=== PATIENT | female | born 1955 | race Caucasian/White ===

== ENCOUNTER 2016-10-17 12:10 | Inpatient (IN) | payer OTHER ==
[~2016-10-17] VITALS: Ht 165.1 cm; Wt 64.9 kg
[~2016-10-17 12:10] MED LIST: HYDR-552 PO; LEVO750T21 PO
[2016-10-17] MEDS ORDERED: NITROGLYCERIN PACKET 1 GM PACKET TD ONE (12:30)
[2016-10-17] MEDS ORDERED: NITROGLYCERIN PACKET 1 GM PACKET ONE (12:35)
--- NOTE | 2016-10-17 12:40 | NUR ---
PRESENTS SELF TO ED DT DIFFUSED CHEST PAIN RADIATING TO BACK SINCE 1100 TODAY. PT DENIES NAUSEA AND VOMITTING,. NO HEADACHE REPORTED. SKIN IS WARM TO TOUCH AND NON DIAPHORETIC. PT IS AFEBRILE. VSS
[2016-10-17 12:44] LABS: BASOPHILS % (AUTO) 0.4 % (0.0-2.0); EOSINOPHILS # (AUTO) 0.4 /CMM (0.0-0.7); EOSINOPHILS % (AUTO) 4.7 % (0.0-6.0); HEMATOCRIT 42 % (33-45); HEMOGLOBIN 13.9 g/dL (11.5-14.8); LYMPHOCYTES # (AUTO) 3.2 /CMM (0.8-4.8); LYMPHOCYTES % (AUTO) 38.6 % (20.0-44.0); MEAN CORPUSCULAR HEMOGLOBIN 31 PG (26.0-33.0); MEAN CORPUSCULAR HGB CONC 33 g/dl (31.0-36.0); MEAN CORPUSCULAR VOLUME 93 fL (82-100); MONOCYTES # (AUTO) 0.2 /CMM (0.1-1.30); MONOCYTES % (AUTO) 2.5 % (2.0-12.0); NEUTROPHILS # (AUTO) 4.5 /CMM (1.8-8.9); NEUTROPHILS % (AUTO) 53.8 % (43.0-81.0); PLATELET COUNT (AUTO) 288 /CMM (150-450); RDW COEFFICIENT OF VARIATION 13.3 (11.5-15.0); RED BLOOD CELL COUNT(AUTO) 4.47 MIL/uL (4.0-5.2); WHITE BLOOD COUNT (AUTO) 8.3 K/uL (4.3-11.0)
--- NOTE | 2016-10-17 12:44 | NUR ---
ULTRASONIC HAND SOLDERER AT BEDSIDE
--- NOTE | 2016-10-17 12:44 | NUR ---
IV ACCESSED TO LAC 20. BLOOD SAMPLE SENT TO LAB
[2016-10-17 12:58] LABS: INR 0.94 (0.87-1.13); PROTHROMBIN TIME 9.8 SECS (9.5-12.7)
[2016-10-17] MEDS ORDERED: IV NS 0.9% 1,000 ML BAG IV ONE (13:00)
[2016-10-17 13:02] LABS: CALCIUM, SERUM 9.2 mg/dL (8.5-10.1); CARBON DIOXIDE 29 mmol/L (21-32); CHLORIDE 103 mmol/L (98-107); CREATININE 1.1 mg/dL (0.6-1.3); GLUCOSE 146 mg/dL (74-106); POTASSIUM 4.1 mmol/L (3.5-5.1); SODIUM SERUM 140 mmol/L (136-145); UREA NITROGEN, BLOOD 15 mg/dL (7-18)
[2016-10-17 13:11] LABS: TROPONIN I < 0.017 ng/mL (0.00-0.056)
--- NOTE | 2016-10-17 13:18 | NUR ---
CALLED NURSING SUP. FOR TELE BED
--- NOTE | 2016-10-17 13:21 | NUR ---
SAM PAGED, DR.SAM Hall MUSIC DIRECTOR
[2016-10-17] MEDS ORDERED: METO25TA20 PO (13:29)
[2016-10-17] MEDS ORDERED: SIMV10TA6 PO (13:29)
[2016-10-17] MEDS ORDERED: ASPI81TA2 PO (13:29)
[2016-10-17] MEDS ORDERED: NITR0.4T6 SL (13:29)
[2016-10-17] MEDS ORDERED: CHOL100044 PO (13:30)
--- NOTE | 2016-10-17 13:45 | NUR ---
TRIED GIVING REPORT BUT NURSE IN NOT AVAILABLE
--- NOTE | 2016-10-17 13:58 | NUR ---
TRIED GIVING REPORT BUT NURSE IN NOT AVAILABLE
[2016-10-17] MEDS ORDERED: ACETAMINOPHEN 325 MG TABLET PO PRN (14:00)
[2016-10-17] MEDS ORDERED: NITROGLYCERIN 0.4 MG/TAB BOTTLE SL PRN ×2 (14:00)
[2016-10-17] MEDS ORDERED: HYDROCODONE/APAP 5/325MG 1 EACH TABLET PO PRN (14:00)
[2016-10-17] MEDS: METOPROLOL TARTRATE 25 MG TABLET PO SCH ×2 (14:00→21:21)
[2016-10-17] MEDS ORDERED: ONDANSETRON HCL/PF 4 MG/2 ML VIAL IVP PRN (14:00)
[2016-10-17] MEDS ORDERED: MAGNESIUM HYDROXIDE 30 ML UDC PO PRN (14:00)
[2016-10-17] MEDS ORDERED: Z GUARD REMEDY 2 OZ OINT TP PRN (14:00)
[2016-10-17] MEDS ORDERED: MORPHINE SULFATE INJ 2 MG/ML DISP.SYRIN IV PRN (14:00)
[2016-10-17] MEDS ORDERED: ZOLPIDEM TARTRATE 5 MG TABLET PO PRN (14:00)
[2016-10-17] MEDS ORDERED: MAG HYDROX/AL HYDROX/SIMETH 30 ML UDC PO PRN (14:00)
--- NOTE | 2016-10-17 14:04 | NUR ---
TRIED GIVING REPORT BUT NURSE NOT AVAILABLE
--- NOTE | 2016-10-17 14:15 | NUR ---
PATIENT TRASNPORTED TO TELE 1. BINAE REPORT GIVEN
[2016-10-17 15:02] VITALS: BP 135/62
--- NOTE | 2016-10-17 15:47 | NUR ---
APPLIANCE PAINTER AND REFINISHER INITIAL NOTE: RECEIVED PATIENT FROM ER FOR CHEST PAIN UNDER SR BETH SCHWARTZ. PATIENT IS A&OX4, AMBULATORY, CONTINENT. ON TELE MONITOR WITH SR, NO SOB, DENIES CHEST DISCOMFORT, DENIES PAIN. BED KEPT LOW, LOCKED ALARM ON FOR SAFETY WITH CALL LIGHT WITHIN REACH. BELONGINGS SIGNED. HOSPITAL ORIENTATION DONE. VITAL SIGNS DONE. GRANDDAUGHTER AT BEDSIDE. STRESS TEST CONSENT DONE. ALL NEEDS MET AND ANTICIPATED. WILL CONT TO MONITOR.
--- NOTE | 2016-10-17 19:24 | NUR ---
PIPE JEEPER CLOSING NOTE: PATIENT A&OX4, AMBULATORY, CONTINENT. ON ROOM AIR W/NO SOB, DENIES CHEST DISCOMFORT, DENIES PAIN. LAC #20 INTACT AND PATENT. BED KEPT LOW, LOCKED, ALARM ON FOR SAFETY WITH CALL LIGHT WITHIN REACH. ALL NEEDS MET AND ANTICIPATED. WILL ENDORSE TO PM NURSE FOR MILADIS.
--- NOTE | 2016-10-17 19:46 | NUR ---
FOREIGN EXCHANGE DEALER INITIAL NOTE: RECEIVED PATIENT FROM AM SHIFT , PATIENT IS A/OX4, AMBULATORY, CONTINENT. ON TELE MONITOR WITH SR, NO SOB, DENIES CHEST DISCOMFORT, DENIES PAIN. BED KEPT LOW, LOCKED ALARM ON FOR SAFETY WITH CALL LIGHT WITHIN REACH LABS DRAWN FOR TROPONIN LEVEL, PT NPO AFTER MIDNIGHT, D/T STRESS TEST SCHEDULED FOR 12PM PT AWARE .
[2016-10-17 20:00] VITALS: BP 141/61
[2016-10-17] MEDS ORDERED: SIMVASTATIN 20 MG TABLET PO SCH (22:00)
[2016-10-17] MEDS ORDERED: CHOLECALCIFEROL 1,000 UNIT TABLET (VIT D3) PO SCH (22:00)
[2016-10-18] VITALS: BP 140/50
[2016-10-18 04:00] VITALS: BP 124/51
[2016-10-18 04:43] VITALS: BP 124/51
--- NOTE | 2016-10-18 06:30 | NUR ---
ORTHOTICS ASSISTANT CLOSING NOTE: ENDORSED PATIENT TO AM SHIFT , PATIENT IS A/OX4, AMBULATORY, CONTINENT. ON TELE MONITOR WITH SR, NO SOB, DENIES CHEST DISCOMFORT, DENIES PAIN. BED KEPT LOW, LOCKED ALARM ON FOR SAFETY WITH CALL LIGHT WITHIN REACH LABS DRAWN FOR TROPONIN LEVEL, NEGATIVE, PT NPO AFTER MIDNIGHT, D/T STRESS TEST SCHEDULED FOR 12PM PT AWARE
--- NOTE | 2016-10-18 07:15 | NUR ---
RN INITIAL NOTE PATIENT RECEIVED IN BED. PATIENT IS ALERT AND ORIENTED. ABLE TO MAKE NEEDS KNOWN. SINUS RHYTHM ON TELE MONITOR. RESPIRATIONS ARE EVEN AND UNLABORED. SATING WELL ON ROOM AIR. NO S/S OF RESPIRATORY DISTRESS OR SOB. PT IS ON NPO STATUS PENDING FNS CONSULT AND STRESS TEST. IV SITE FLUSHED, PATENT. SKIN IS WARM AND DRY TO TOUCH. SAFETY PRECAUTIONS IMPLEMENTED. BED IN LOCKED, LOW POSITION WITH TWO SIDE RAILS UP. CALL LIGHT AND BELONGINGS WITHIN REACH. WILL CONTINUE TO MONITOR CLOSELY.
[2016-10-18] MEDS ORDERED: PANTOPRAZOLE 40 MG TABLET.DR PO SCH (07:30)
[2016-10-18 08:00] VITALS: BP_SYST 132; BP_SYST 144; BP_DIAS 55; BP_DIAS 57
--- NOTE | 2016-10-18 08:15 | NUR ---
RN NOTE PATIENT REFUSED AM MEDICATIONS.
[2016-10-18] MEDS: METOPROLOL TARTRATE 25 MG TABLET PO SCH (08:21)
[2016-10-18] MEDS: ASPIRIN 81 MG TAB.CHEW PO SCH ×2 (08:21→10:02)
[2016-10-18 12:00] VITALS: BP 136/46
--- NOTE | 2016-10-18 12:01 | NUR ---
RN NOTE PATIENT REFUSED LAB DRAW
[2016-10-18] MEDS ORDERED: SIMV20TA6 PO (14:22)
--- NOTE | 2016-10-18 15:12 | NUR ---
RN NOTE PATIENT DISCHARGED. PAPERWORK COMPLETE. IV SITE DISCONTINUED. MD NOTIFIED. ID REMOVED. FAMILY COMING TO PICK HER UP.
--- NOTE | 2016-10-18 16:32 | NUR ---
NM:CARDIAC STRESS TEST COMPLETED. TECH;rb
== END 2016-10-18 15:23 | disposition home or self-care (01) | DRG 198 ==
LOC: ER 12:12 → TELE1 14:07
DX: I25.10 Atherosclerotic heart disease of native coronary artery without angina pectoris (principal); I10 Essential (primary) hypertension; Z98.61 Coronary angioplasty status; I25.2 Old myocardial infarction; F17.210 Nicotine dependence, cigarettes, uncomplicated; E78.5 Hyperlipidemia, unspecified; Z79.899 Other long term (current) drug therapy; Z87.442 Personal history of urinary calculi; R73.03 Prediabetes
CPT/HCPCS: 36415; 71010-TC; 80048-TC; 84484-TC; 85025-TC; 85730-TC; 87081-TC; 93307-TC; A4606; A9502; J7030; Z7610

== ENCOUNTER 2017-05-20 10:24 | Emergency (ER) | payer OTHER ==
[~2017-05-20] VITALS: Ht 162.6 cm; Wt 63.5 kg
[~2017-05-20 10:24] MED LIST changes: +ASPI-1169 PO; +CHOL100044 PO; -HYDR-552 PO; -LEVO750T21 PO; +METO25TA20 PO; +NITR0.4T48 SL; +SIMV20TA6 PO
[2017-05-20 10:28] VITALS: BP 145/83
[2017-05-20] MEDS ORDERED: TDAP [DIPH/PERTUSSIS/TET] 0.5 ML VIAL IM ONE ×2 (11:00→11:05)
== END 2017-05-20 11:15 | disposition home or self-care (01) ==
LOC: ER 10:25
DX: S80.12XA Contusion of left lower leg, initial encounter (principal); S80.11XA Contusion of right lower leg, initial encounter; F17.210 Nicotine dependence, cigarettes, uncomplicated; E78.5 Hyperlipidemia, unspecified; I10 Essential (primary) hypertension; Z79.82 Long term (current) use of aspirin; Z87.442 Personal history of urinary calculi; V29.69XA Unspecified motorcycle rider injured in collision with other motor vehicles in traffic accident, initial encounter; Y93.89 Activity, other specified; Y92.410 Unspecified street and highway as the place of occurrence of the external cause; Y99.8 Other external cause status
CPT/HCPCS: 90715; A4606; A6402; Z7610

== ENCOUNTER 2018-12-19 22:38 | Emergency (ER) | payer OTHER ==
[~2018-12-19] VITALS: Ht 160 cm; Wt 64.4 kg
--- NOTE | 2018-12-19 23:01 | NUR ---
CAME IN FOR R SIDED BODY PAIN S/P GLF 9 DAYS AGO, 400MG IBUPROFEN THIS AM, ON ANTIBIOTICS FOR SINUSITUS X2DAYS, TO ER BED 4, HOOKED TO MONITOR, AWAITING MD LLANOS.
--- NOTE | 2018-12-19 23:22 | NUR ---
DR MASON AT BEDSIDE
--- NOTE | 2018-12-19 23:45 | NUR ---
MEDICAL BILLER/CODER AT BEDSIDE
[2018-12-20 01:19] VITALS: BP 144/73
--- NOTE | 2018-12-20 01:22 | NUR ---
Patient discharged to home in stable condition. Written and verbal after care instructions given. Patient AND DAUGHTER verbalizes understanding of instruction. DR. MASON IN TO SEE PATIENT TO REINFORCE DC INSTRUCTION.
== END 2018-12-20 01:35 | disposition home or self-care (01) ==
LOC: ER 22:47
DX: M79.18 Myalgia, other site (principal); M54.6 Pain in thoracic spine; M25.511 Pain in right shoulder; I10 Essential (primary) hypertension; E11.9 Type 2 diabetes mellitus without complications; E78.5 Hyperlipidemia, unspecified; F17.200 Nicotine dependence, unspecified, uncomplicated; Z87.442 Personal history of urinary calculi; Z79.82 Long term (current) use of aspirin; Z95.5 Presence of coronary angioplasty implant and graft; W01.0XXA Fall on same level from slipping, tripping and stumbling without subsequent striking against object, initial encounter; Y93.89 Activity, other specified; Y92.481 Parking lot as the place of occurrence of the external cause; Y99.8 Other external cause status
CPT/HCPCS: 71100-TC; 73030-TC; 73060-TC

== ENCOUNTER 2020-01-31 17:58 | Emergency (ER) | payer MEDICAID, OTHER ==
[~2020-01-31] VITALS: Ht 160 cm; Wt 64.4 kg
[~2020-01-31 17:58] MED LIST changes: +SIMV-46 PO; -SIMV20TA6 PO
[2020-01-31 18:45] LABS: BASOPHILS # (AUTO) 0.2 /CMM (0.0-0.2); BASOPHILS % (AUTO) 2.1 % (0.0-2.0); EOSINOPHILS % (AUTO) 1.8 % (0.0-6.0); HEMATOCRIT 41 % (33-45); HEMOGLOBIN 13.5 g/dL (11.5-14.8); LYMPHOCYTES % (AUTO) 39.1 % (20.0-44.0); MEAN CORPUSCULAR HGB CONC 33 g/dl (31.0-36.0); MEAN CORPUSCULAR VOLUME 96 fL (82-100); MONOCYTES # (AUTO) 0.4 /CMM (0.1-1.30); MONOCYTES % (AUTO) 5.2 % (2.0-12.0); NEUTROPHILS % (AUTO) 51.8 % (43.0-81.0); PLATELET COUNT (AUTO) 340 /CMM (150-450); RED BLOOD CELL COUNT(AUTO) 4.27 MIL/uL (4.0-5.2); WHITE BLOOD COUNT (AUTO) 7.8 K/uL (4.3-11.0)
--- NOTE | 2020-01-31 18:45 | NUR ---
BIBDAUGHTER FROM HOME TO ER BED 6. AAOX4. NOT IN RESP DISTRESS. AMBULATORY. CAME IN FOR LOWER ABDOMINAL PAIN THAT IS EXTENDING ALL THE WAY UP TO HER CHEST SINCE FRIDAY WHICH SHE DESCRIBES PRESSURE LIKE. DENIES NAUSEA NOR VOMMITING. DENIES AND PAIN OR BURNING UPON URINATION. PT ALSO REPORTS THAT SHE FEELS WEAK. WAS AT THE BEDSIDE FOR EVAL. ORDERS RECEIEVED NOTED AND CARRIED OUT. IV LINE ESTABLISHED ON THE LAC 20G, BLOOD DRAWN AND GIVEN TO PATIENT REGISTRATION MANAGER. URINE COLLECTED AND SENT TO LAB. WILL CONTINUE TO MONITOR PT
--- NOTE | 2020-01-31 18:50 | NUR ---
EKG AND ULTRASOUND AT BEDSIDE
--- NOTE | 2020-01-31 18:50 | NUR ---
URINE SENT TO LAB
[2020-01-31 18:51] LABS: BILIRUBIN,URINE Negative (NEGATIVE); BLOOD, URINE Trace-lysed Ery/uL (NEGATIVE); COLOR,URINE Yellow (YELLOW); LEUKOCYTE ESTERASE ,URINE Negative (NEGATIVE); NITRITE, URINE Negative (NEGATIVE); PROTEIN,URINE Negative (NEGATIVE); UGLUCOSE Negative (NEGATIVE); UROBILINOGEN,URINE 0.2 EU/dL (0.2)
[2020-01-31 18:57] LABS: CALCIUM, SERUM 9.3 mg/dL (8.5-10.1); CARBON DIOXIDE 28 mmol/L (21-32); CHLORIDE 101 mmol/L (98-107); CREATININE 0.8 mg/dL (0.6-1.3); GLUCOSE 129 mg/dL (74-106); POTASSIUM 3.9 mmol/L (3.5-5.1); SODIUM SERUM 138 mmol/L (136-145); UREA NITROGEN, BLOOD 16 mg/dL (7-18)
[2020-01-31 19:03] LABS: ALANINE AMINOTRANSFERASE 36 U/L (12-78); ALBUMIN 3.8 g/dL (3.4-5.0); ALKALINE PHOSPHATASE 69 U/L (46-116); ASPARTATE AMINOTRANSFERASE 22 U/L (15-37); BILIRUBIN,DIRECT 0.1 mg/dL (0.0-0.2); BILIRUBIN,TOTAL 0.5 mg/dL (0.2-1.0); LIPASE 76 U/L (73-393); TOTAL PROTEIN, SERUM 8.3 g/dL (6.4-8.2)
[2020-01-31 19:15] LABS: BACTERIA,URINE Few /HPF (None Seen); RBC,URINE 0-2 /HPF (0-2); WBC,URINE 0-2 /HPF (0-3)
[2020-01-31 19:16] LABS: SQUAMOUS EPITHELIAL CELL,UR Moderate /HPF (None Seen)
[2020-01-31 19:17] LABS: URIC ACID CRYSTALS,URINE Rare /HPF (None Seen)
--- NOTE | 2020-01-31 20:33 | NUR ---
Patient discharged to home in stable condition. Written and verbal after care instructions given. Patient verbalizes understanding of instruction. Pt ambulatory with a steady gait
[2020-01-31 20:35] VITALS: BP 138/73
== END 2020-01-31 20:35 | disposition home or self-care (01) ==
LOC: ER 18:02
DX: R10.13 Epigastric pain (principal); R10.11 Right upper quadrant pain; R10.30 Lower abdominal pain, unspecified; K76.0 Fatty (change of) liver, not elsewhere classified; I25.10 Atherosclerotic heart disease of native coronary artery without angina pectoris; I10 Essential (primary) hypertension; E11.9 Type 2 diabetes mellitus without complications; E78.5 Hyperlipidemia, unspecified; F41.9 Anxiety disorder, unspecified; F17.210 Nicotine dependence, cigarettes, uncomplicated; Z87.442 Personal history of urinary calculi; Z98.890 Other specified postprocedural states; Z79.899 Other long term (current) drug therapy; Z79.82 Long term (current) use of aspirin
CPT/HCPCS: 36415; 71045-TC; 76705-TC; 80048-TC; 80076-TC; 81000-TC; 82962-TC; 83690-TC; 84484-TC; 85025-TC

== ENCOUNTER 2022-03-26 18:10 | Emergency (ER) | payer BC, OTHER ==
[~2022-03-26] VITALS: Ht 160 cm; Wt 67.1 kg
--- NOTE | 2022-03-26 19:48 | NUR ---
RECEIVED REPORT FROM TOMMIE JORDAN. PATIENT CAME WITH CC OF EPIGASTRIC PAIN WHICH STARTED LAST NIGHT. PATIENT IS ATTACHED TO MONITOR. VITALS CHECKED. PATIENT IS AAOX4. ABLE TO MAKE NEEDS KNOWN. WITH IV CANNULA G20 ON RIGHT HAND.
[2022-03-26 20:00] LABS: BASOPHILS # (AUTO) 0.1 K/uL (0.0-0.2); BASOPHILS % (AUTO) 0.7 % (0.0-2.0); HEMATOCRIT 43 % (33-45); HEMOGLOBIN 14.3 g/dL (11.5-14.8); LYMPHOCYTES # (AUTO) 3.2 K/uL (0.8-4.8); LYMPHOCYTES % (AUTO) 31.8 % (20.0-44.0); MEAN CORPUSCULAR HGB CONC 34 g/dl (31.0-36.0); MEAN CORPUSCULAR VOLUME 94 fL (82-100); MONOCYTES # (AUTO) 0.3 K/uL (0.1-1.30); MONOCYTES % (AUTO) 3.4 % (2.0-12.0); NEUTROPHILS # (AUTO) 6.4 K/uL (1.8-8.9); NEUTROPHILS % (AUTO) 63.1 % (43.0-81.0); PLATELET COUNT (AUTO) 268 K/uL (150-450); RED BLOOD CELL COUNT(AUTO) 4.54 MIL/uL (4.0-5.2); WHITE BLOOD COUNT (AUTO) 10.2 K/uL (4.3-11.0)
[2022-03-26 20:17] LABS: MAGNESIUM 2.3 mg/dL (1.8-2.4)
[2022-03-26 20:26] LABS: ALANINE AMINOTRANSFERASE 36 U/L (12-78); ALBUMIN 4.3 g/dL (3.4-5.0); ALKALINE PHOSPHATASE 93 U/L (46-116); ASPARTATE AMINOTRANSFERASE 29 U/L (15-37); BILIRUBIN,DIRECT 0.2 mg/dL (0.0-0.2); BILIRUBIN,TOTAL 0.6 mg/dL (0.2-1.0); CALCIUM, SERUM 9.2 mg/dL (8.5-10.1); CARBON DIOXIDE 28 mmol/L (21-32); CHLORIDE 98 mmol/L (98-107); GLUCOSE 270 mg/dL (74-106); POTASSIUM 3.8 mmol/L (3.5-5.1); SODIUM SERUM 134 mmol/L (136-145); TOTAL PROTEIN, SERUM 8.7 g/dL (6.4-8.2); UREA NITROGEN, BLOOD 15 mg/dL (7-18)
--- NOTE | 2022-03-26 21:10 | NUR ---
SHEET MUSIC SALESPERSON AT BEDSIDE TO DRAW 2ND TROP
[2022-03-26] MEDS ORDERED: FAMO20TA8 PO (22:33)
--- NOTE | 2022-03-26 22:42 | NUR ---
IV CANNULA REMOVED
--- NOTE | 2022-03-26 22:43 | NUR ---
Patient discharged to home in stable condition. Written and verbal after care instructions given. Patient verbalizes understanding of instruction.
[2022-03-26 22:45] VITALS: BP 147/67
== END 2022-03-26 22:45 | disposition home or self-care (01) ==
LOC: ER 18:13
DX: R07.9 Chest pain, unspecified (principal); I10 Essential (primary) hypertension; E11.9 Type 2 diabetes mellitus without complications; E78.5 Hyperlipidemia, unspecified; F17.200 Nicotine dependence, unspecified, uncomplicated; Z87.442 Personal history of urinary calculi; Z79.899 Other long term (current) drug therapy
CPT/HCPCS: 36415; 71045-TC; 80048-TC; 80076-TC; 83690-TC; 83735-TC; 84484-TC; 85025-TC

== ENCOUNTER 2024-03-10 17:55 | Emergency (ER) | payer BC, OTHER ==
[~2024-03-10] VITALS: Ht 160 cm; Wt 64.4 kg
[~2024-03-10 17:55] MED LIST changes: +FAMO20TA8 PO
[2024-03-10 18:43] LABS: BASOPHILS % (AUTO) 0.7 % (0.0-2.0); EOSINOPHILS # (AUTO) 0.1 K/uL (0.0-0.7); EOSINOPHILS % (AUTO) 1.5 % (0.0-6.0); HEMATOCRIT 38 % (33-45); HEMOGLOBIN 12.6 g/dL (11.5-14.8); LYMPHOCYTES # (AUTO) 2.1 K/uL (0.8-4.8); LYMPHOCYTES % (AUTO) 43.5 % (20.0-44.0); MEAN CORPUSCULAR HEMOGLOBIN 32 PG (26.0-33.0); MEAN CORPUSCULAR HGB CONC 33 g/dl (31.0-36.0); MEAN CORPUSCULAR VOLUME 95 fL (82-100); MONOCYTES # (AUTO) 0.5 K/uL (0.1-1.30); MONOCYTES % (AUTO) 9.8 % (2.0-12.0); NEUTROPHILS # (AUTO) 2.1 K/uL (1.8-8.9); NEUTROPHILS % (AUTO) 44.5 % (43.0-81.0); PLATELET COUNT (AUTO) 179 K/uL (150-450); RED CELL DISTRIBUTION WIDTH 14.3 % (11.5-15.0); WHITE BLOOD COUNT (AUTO) 4.8 K/uL (4.3-11.0)
[2024-03-10 18:52] LABS: CALCIUM, SERUM 8.7 mg/dL (8.5-10.1); CARBON DIOXIDE 29 mmol/L (21-32); CHLORIDE 98 mmol/L (98-107); GLUCOSE 297 mg/dL (74-106); POTASSIUM 4.6 mmol/L (3.5-5.1); SODIUM SERUM 134 mmol/L (136-145); UREA NITROGEN, BLOOD 16 mg/dL (7-18)
[2024-03-10] MEDS ORDERED: IBUP-1490 PO (20:00)
[2024-03-10 21:22] VITALS: BP 140/79; TEMP 97.9; O2SAT 99
== END 2024-03-10 21:22 | disposition home or self-care (01) ==
LOC: ER 18:38
DX: J39.9 Disease of upper respiratory tract, unspecified (principal); E11.65 Type 2 diabetes mellitus with hyperglycemia; E78.5 Hyperlipidemia, unspecified; F17.210 Nicotine dependence, cigarettes, uncomplicated; I10 Essential (primary) hypertension; I25.10 Atherosclerotic heart disease of native coronary artery without angina pectoris; R05.9 Cough, unspecified; R06.02 Shortness of breath; R07.9 Chest pain, unspecified; R50.9 Fever, unspecified; Z79.82 Long term (current) use of aspirin; Z87.442 Personal history of urinary calculi; Z95.5 Presence of coronary angioplasty implant and graft; Z20.822 Contact with and (suspected) exposure to COVID-19
CPT/HCPCS: 36415; 71045-TC; 80048-TC; 84484-TC; 85025-TC